=== PATIENT | male | born 1955 | race Two or more races ===

== ENCOUNTER 2025-04-16 23:43 | Emergency (ER) | payer OTHER, MEDICARE ==
[~2025-04-16] VITALS: Ht 175.3 cm; Wt 81.8 kg
[2025-04-17 00:14] VITALS: TEMP 97.5
--- NOTE | 2025-04-17 00:17 | ED.PDOC ---
History of Present Illness HPI Comments 70-year-old male who came to ER via EMS for back pains. Patient has been experiencing left hip pain radiating down his left lower leg for the past few weeks. He went to the bathroom earlier, when he had sudden onset left hip pain radiating down the leg, shooting pain, that hurt so much that he had to lay on the ground. No head trauma noted. Patient laid on the ground for over 5 hours, waiting for the pain to resolve but it didn't. 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 Allergies: Coded Allergies: NO KNOWN ALLERGIES (Unverified , 04/17/25) Home Meds Active Scripts Dexamethasone (Decadron) 4 Mg Tb, 1 TAB PO BID for 5 Days, #10 TAB Prov:RADHA CRUMP MD 04/17/25 Gabapentin (Once-Daily) (Gabapentin) 300 Mg Tab, 300 MG PO Q6HP PRN, #60 TAB Prov:RADHA CRUMP MD 04/17/25 Information Source: Patient, Emergency Med Personnel Mode of Arrival: EMS Past Medical History PAST MEDICAL HISTORY: HTN Surgical History: Denies all surgeries Family History Family History: Reviewed,noncontributory to illness Social History Smoker: Non-Smoker Alcohol: Denies ETOH Use Drugs: Denies Drug Use Lives In: Home Constitutional: denies: chills, diaphoresis, fatigue, fever, malaise, sweats, weakness, others EENTM: denies: blurred vision, double vision, ear bleeding, ear discharge, ear drainage, ear pain, ear ringing, eye pain, eye redness, hearing loss, mouth pain, mouth swelling, nasal discharge, nose bleeding, nose congestion, nose pain, photophobia, tearing, throat pain, throat swelling, voice changes, others Respiratory: denies: cough, hemoptysis, orthopnea, SOB at rest, shortness of breath, SOB with excertion, stridor, wheezing, others Cardiovascular: denies: chest pain, dizzy spells, diaphoresis, Dyspnea on exertion, edema, irregular heart beat, left arm pain, lightheadedness, palpitations, PND, syncope, others Gastrointestinal: denies: abdomen distended, abdominal pain, blood streaked bowels, constipated, diarrhea, dysphagia, difficulty swallowing, hematemesis, melena, nausea, poor appetite, poor fluid intake, rectal bleeding, rectal pain, vomiting, others Genitourinary: denies: burning, dysuria, flank pain, frequency, hematuria, incontinence, penile discharge, penile sore, pain, testicle pain, testicle swelling, urgency, others Neurological: denies: dizziness, fainting, headache, left sided numbness, left sided weakness, numbness, paresthesia, pre-existing deficit, right sided numbness, right sided weakness, seizure, speech problems, tingling, tremors, weakness, others Musculoskeletal: reports: back pain, joint pain (Left hip), muscle pain (Left lower leg); denies: gout, joint swelling, muscle stiffness, neck pain, others Integumetry: denies: bruises, change in color, change in hair/nails, dryness, laceration, lesions, lumps, rash, wounds, others Allergic/Immunocompromised: denies: Difficulty Healing, Frequent Infections, Hives, Itching, others Hematologic/Lymphatic: denies: anemia, blood clots, easy bleeding, easy bruising, swollen glands, others Endocrine: denies: excessive hunger, excessive sweating, excessive thirst, excessive urination, flushing, intolerance to cold, intolerance to heat, unexplained weight gain, unexplained weight loss, others Psychiatric: denies: anxiety, bipolar disorder, depression, hopeless, panic disorder, schizophrenia, sleepless, suicidal, others Physical Exam General Appearance: No Apparent Distress, Normal HEENT: Normal ENT Inspection, Pharynx Normal, TMs Normal Neck: Full Range of Motion, Non-Tender, Normal, Normal Inspection Respiratory: Chest Non-Tender, Lungs Clear, No Accessory Muscle Use, No Respiratory Distress, Normal Breath Sounds Cardiovascular: No Edema, No JVD, No Murmur, No Gallop, Normal Peripheral Pulses, Regular Rate/Rhythm Breast Exam: Deferred Gastrointestinal: No Organomegaly, Non Tender, No Pulsatile Mass, Normal Bowel Sounds, Soft Genitalia: Deferred Pelvic: Deferred Rectal: Deferred Extremities: No calf tenderness, Normal capillary refill, Normal inspection, Normal range of motion, Non-tender, No pedal edema Musculoskeletal : Apperance: Normal Neurologic: Alert, 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 Was a procedure done?: No Differential Dx Considerations may include: Musculoskeletal pain, sciatica X-Ray, Labs, Meds, VS Vital Signs Date Time Temp Pulse Resp B/P (MAP) Pulse Ox O2 Delivery O2 Flow Rate FiO2 04/17/25 04:00 68 16 150/53 (85) 100 04/17/25 02:00 76 14 139/37 (71) 99 04/17/25 01:00 72 10 139/38 (71) 98 04/17/25 00:49 74 12 135/46 04/17/25 00:19 77 16 153/58 04/17/25 00:14 97.5 77 16 153/58 (89) 99 97.5 04/17/25 00:14 Room Air* 0 21 04/16/25 23:53 97.6 89 16 139/87 98 97.6 Lab Test 04/17/25 00:17 Range/Units White Blood Count 6.2 4.4-10.8 10^3/uL Red Blood Count 4.85 4.5-5.90 10^6/uL Hemoglobin 13.0 L 13.5-17.5 g/dL Hematocrit 39.7 L 41.0-53.0 % Mean Corpuscular Volume 81.9 80.0-100.0 fL Mean Corpuscular Hemoglobin 26.8 L 28.0-32.0 pg Mean Corpuscular Hemoglobin Concent 32.7 32.0-36.0 g/dL Red Cell Distribution Width 16.3 H 11.8-14.3 % Platelet Count 279 140-450 10^3/uL Mean Platelet Volume 7.3 6.9-10.8 fL Neutrophils (%) (Auto) 57.1 37.0-80.0 % Lymphocytes (%) (Auto) 31.2 10.0-50.0 % Monocytes (%) (Auto) 9.9 0.0-12.0 % Eosinophils (%) (Auto) 1.1 0.0-7.0 % Basophils (%) (Auto) 0.7 0.0-2.0 % Neutrophils # (Auto) 3.6 1.6-8.6 10 ^3/uL Lymphocytes # (Auto) 1.9 0.4-5.4 10 ^3/uL Monocytes # (Auto) 0.6 0-1.3 10 ^3/uL Eosinophils # (Auto) 0.1 0-0.8 10 ^3/uL Basophils # (Auto) 0 0-0.2 10 ^3/uL Nucleated Red Blood Cells 0.1 % Sodium Level 140 136-145 mmol/L Potassium Level 4.0 3.5-5.1 mmol/L Chloride Level 106 98-107 mmol/L Carbon Dioxide Level 25 20-31 mmol/L Anion Gap 9 5-15 Blood Urea Nitrogen 24 H 9-23 mg/dL Creatinine 1.89 H 0.700-1.30 mg/dL Glomerular Filtration Rate Calc 37 >90 mL/min BUN/Creatinine Ratio 12.7 10.0-20.0 Serum Glucose 119 H 74-106 mg/dL Calcium Level 9.6 8.7-10.4 mg/dL Total Bilirubin 0.9 0.2-1.0 mg/dL Aspartate Amino Transferase (AST) 31 13-40 U/L Alanine Aminotransferase (ALT) 31 7-40 U/L Alkaline Phosphatase 110 46-116 U/L Total Protein 7.9 5.7-8.2 g/dL Albumin 4.5 3.2-4.8 g/dL Lipase 58 H 12-53 U/L Current Medications Medications (Trade) Dose Ordered Sig/Patricia Route Start Time Stop Time Status Last Admin Ondansetron HCl (Zofran) 4 mg ONCE ONCE IV 04/17/25 00:15 04/17/25 00:16 ME 04/17/25 00:20 Hydromorphone HCl (Dilaudid Injection) 1 mg ONCE ONCE IV 04/17/25 00:15 04/17/25 00:16 ME 04/17/25 00:19 Sodium Chloride 1,000 ml @ 1,000 mls/hr Q1H ONCE IV 04/17/25 00:15 04/17/25 01:21 ME 04/17/25 00:24 Ibuprofen (Motrin Tablet) 600 mg ONCE ONCE PO 04/17/25 04:15 04/17/25 04:16 ME 04/17/25 04:09 Time of 1ST Reevaluation: 00:13 Reevaluation 1ST: Unchanged Patient Education/Counseling: Diagnosis, Treatment Family Education/Counseling: No Family Present SEPSIS Sepsis Screen Date sepsis recognized/suspect: Apr 16, 2025 Time Sepsis recognized/suspect: 2339 Recent Procedure: No (T) On Antibiotic Therapy: No Respiratory Rate >20: No Heart Rate >90: No Temp<36 C (96.8 F) or >38.3 C: No SBP <90 or MAP <65 mmHG: No New Acute Mental Status Change: No Is the patient on CPAP, BIPAP,: No Physician Orders Urinalysis (04/17/25 00:08) Ct Ab Pel Wo Con-No Oral Or Iv (04/17/25 00:08) Vital Signs Date Time Temp Pulse Resp B/P (MAP) Pulse Ox O2 Delivery O2 Flow Rate FiO2 04/17/25 04:00 68 16 150/53 (85) 100 04/17/25 02:00 76 14 139/37 (71) 99 04/17/25 01:00 72 10 139/38 (71) 98 04/17/25 00:49 74 12 135/46 04/17/25 00:19 77 16 153/58 04/17/25 00:14 97.5 77 16 153/58 (89) 99 97.5 04/17/25 00:14 Room Air* 0 21 04/16/25 23:53 97.6 89 16 139/87 98 97.6 Laboratory Tests Test 04/17/25 00:17 White Blood Count 6.2 10^3/uL (4.4-10.8) Medications Medications Dose Ordered Sig/Patricia Route Start Time Stop Time Status Last Admin Dose Admin Hydromorphone HCl 1 mg ONCE ONCE IV 04/17/25 00:15 04/17/25 00:16 DC 04/17/25 00:19 Ibuprofen 600 mg ONCE ONCE PO 04/17/25 04:15 04/17/25 04:16 DC 04/17/25 04:09 Ondansetron HCl 4 mg ONCE ONCE IV 04/17/25 00:15 04/17/25 00:16 DC 04/17/25 00:20 Sodium Chloride 1,000 ml @ 1,000 mls/hr Q1H ONCE IV 04/17/25 00:15 04/17/25 01:21 ME 04/17/25 00:24 Departure 1 Departure Time of Disposition: 02:00 Impression: Primary Impression: Left-sided low back pain with sciatica Additional Impression: Low back pain Disposition: HOME / SELF CARE / HOMELESS Condition: Stable e-Prescriptions Dexamethasone (Decadron) 4 Mg Tb 1 TAB PO BID for 5 Days, #10 TAB Prov: RADHA CRUMP MD 04/17/25 Gabapentin (Once-Daily) (Gabapentin) 300 Mg Tab 300 MG PO Q6HP PRN, #60 TAB Prov: RADHA CRUMP MD 04/17/25 Discharged With: Self Critical Care Note Critical Care Time?: No Stability Stability form required: No Heart Score Heart Score: Heart Score Response (Comments) Value History N/A 0 EKG N/A 0 Age N/A 0 Risk Factors N/A 0 Troponin N/A 0 Total 0 I personally scribed for RADHA CRUMP MD ([email or web address]) on 04/17/25 at 00:17. Electronically submitted by Gilmer Wells ([email or web address]). RADHA CRUMP MD Apr 17, 2025 00:17
[2025-04-17] MEDS: HYDROmorphone HCL 2 MG/ML VL/or syr IV ONE (00:19)
[2025-04-17] MEDS: ONDANSETRON HCL 4 MG/2 ML VIAL IV ONE (00:20)
[2025-04-17] MEDS: SODIUM CHLORIDE 0.9% 1,000 ML IV ONE (00:24)
[2025-04-17 00:36] LABS: Mean Corpuscular Hemoglobin 26.8 pg (28.0-32.0)
[2025-04-17 00:38] LABS: Hematocrit 39.7 % (41.0-53.0); Hemoglobin 13.0 g/dL (13.5-17.5); Mean Corpuscular Volume 81.9 fL (80.0-100.0); Nucleated Red Blood Cells % 0.1 %
[2025-04-17 00:51] LABS: Alanine Aminotransferase 31 U/L (7-40); Albumin 4.5 g/dL (3.2-4.8); Alkaline Phosphatase 110 U/L (46-116); Anion Gap 9 (5-15); BUN/Creatinine Ratio 12.7 (10.0-20.0); Bilirubin, Total 0.9 mg/dL (0.2-1.0); Calcium 9.6 mg/dL (8.7-10.4); Carbon Dioxide 25 mmol/L (20-31); Chloride 106 mmol/L (98-107); Potassium 4.0 mmol/L (3.5-5.1); Sodium 140 mmol/L (136-145); Total Protein 7.9 g/dL (5.7-8.2)
[2025-04-17 00:55] LABS: Blood Urea Nitrogen 24 mg/dL (9-23); Glucose 119 mg/dL (74-106); Lipase 58 U/L (12-53)
[2025-04-17] MEDS: IOHEXOL 300 MG/ML 100ML BOTTLE IJ ONE (01:56)
--- NOTE | 2025-04-17 02:50 | DVH ---
EXAM: CT CT AB PEL WO CON-NO ORAL OR IV History: LLQ pain Comparison Study: None TECHNIQUE: Multidetector spiral CT of the abdomen was performed from lung bases to pubic symphysis. Imaging was performed without IV contrast. Axial, coronal and sagittal multiplanar reformats were obtained from the axial data set by the technologist. Radiation Dose : 1. Abdomen/Pelvis: CTDIvol 8.94 mGy, DLP 532.9 mGy*cm. FINDINGS: Evaluation of solid organs is limited due to lack of intravenous contrast use. Lung Bases: No acute or significant lung base finding. Normal heart size. No pleural or pericardial effusion. Liver: The liver is normal in size. No focal lesions. Gallbladder and Biliary Tree: Unremarkable Spleen: Unremarkable Pancreas: The pancreas is grossly normal in appearance. Adrenal Glands: Unremarkable Kidneys: Kidneys are grossly normal without calculi or hydronephrosis. 2.1 cm right superior pole renal cortical cyst. Bladder: Grossly unremarkable for degree of distention. Bowel: The stomach is grossly normal in appearance. Small bowel and colon are normal in caliber and distribution. The appendix is normal. Ascites: Absent Lymphadenopathy: No mesenteric, retroperitoneal or periportal lymphadenopathy. Abdominal Wall and Mesentery: Unremarkable. Vasculature: The visualized abdominal aorta is normal in size and caliber. Atherosclerotic vascular calcifications. Evaluation of abdominal and pelvic vessels is limited due to lack of intravenous contrast. Pelvic Organs: The prostate is enlarged, measuring 5.5 cm transverse. Musculoskeletal: No aggressive focal bony lesions, acute fractures or dislocation. IMPRESSION: 1. No acute abdominal or pelvic findings. 2. Enlarged prostate. Radiation optimization: All CT scans at this facility use at least one of these dose optimization techniques: automated exposure control mA and/or kV adjustment per patient size (includes targeted exams where dose is matched to clinical indication) or iterative reconstruction.
[2025-04-17] MEDS ORDERED: GABA300T4 PO (03:24)
[2025-04-17] MEDS ORDERED: DEX4T PO (03:25)
[2025-04-17 04:00] VITALS: BP 150/53; PULSE 68; RESP 16; O2SAT 100
[2025-04-17] MEDS: IBUPROFEN 600 MG TAB PO ONE (04:09)
[2025-04-17] MEDS: HYDROcodone-ACET 10/325MG TAB PO ONE (06:00)
== END 2025-04-17 04:42 | disposition home or self-care (01) ==
LOC: EDBD 23:43 → ER 23:43
DX: M54.42 Lumbago with sciatica, left side (principal); I10 Essential (primary) hypertension; Z79.899 Other long term (current) drug therapy
CPT/HCPCS: 36415; 74176; 80053; 83690; 85025; 96361; 96374; 96375; 99285; J1171; J2405; J7030